=== PATIENT | male | born 1985 | race Caucasian/White ===

== ENCOUNTER 2021-06-21 01:00 | Emergency (ER) | payer SELFPAY ==
[2021-06-21 01:11] VITALS: BP 123/64
[2021-06-21] MEDS ORDERED: KETOROLAC 10 MG TAB PO ONE (07:45)
[2021-06-21] MEDS ORDERED: DOXYCYCLINE 100 MG CAP PO ONE (07:45)
--- NOTE | 2021-06-21 07:47 | Emergency Department Report ---
ED Male HPI - General Chief complaint: Skin/Abscess/Foreign Body Stated complaint: ABCESS ON INNER LEG Time Seen by Provider: 06/21/21 07:17 Source: patient Mode of arrival: Ambulatory Limitations: No Limitations - History of Present Illness Initial comments: 36-year-old black male with no past medical history presents to the emergency department for evaluation of left testicular abscess that he noticed 4 days ago. He states that area has been painful and draining purulent fluid. He denies fever, abdominal pain, nausea, vomiting, and diarrhea. He states that he had an abscess similar to this 1 in the past on his abdominal area. He denies dysuria and penile discharge. MD Complaint: testicle pain, testicle swelling -: Gradual, days(s) (4) Location: left testicle Radiation: none Severity: moderate Severity scale (0 -10): 7 Quality: aching Consistency: intermittent Worsens with: other (Walking) swelling. denies: discharge, mass, rash, urinary retention, blood in urine, dysuria, fever, nausea/vomiting, incontinence - Related Data Sexually active: Yes Previous Rx's Medication Instructions Recorded Last Taken Type DOXYCYCLINE Hyclate [Vibramycin] 100 mg PO Q12HR 7 Days #14 capsule 06/21/21 Unknown Rx Ibuprofen [Motrin 600 MG tab] 600 mg PO Q8H PRN #30 tablet 06/21/21 Unknown Rx Allergies Allergy/AdvReac Type Severity Reaction Status Date / Time No Known Allergies Allergy Unverified 06/21/21 01:08 ED Review of Systems ROS: Stated complaint: ABCESS ON INNER LEG Other details as noted in HPI Comment: All other systems reviewed and negative Constitutional: denies: chills, fever ENT: denies: congestion Respiratory: denies: shortness of breath Cardiovascular: chest pain, palpitations Gastrointestinal: denies: abdominal pain, nausea, vomiting, diarrhea, hematemesis, melena, hematochezia Genitourinary: testicular pain (Left lower). denies: urgency, dysuria, frequency, hematuria, discharge, testicular mass Musculoskeletal: denies: back pain, joint swelling Skin: denies: rash, lesions Neurological: denies: headache, weakness ED Past Medical Hx - Past Medical History Previous Medical History?: No - Surgical History Past Surgical History?: No - Medications Home Medications: Home Medications Medication Instructions Recorded Confirmed Last Taken Type DOXYCYCLINE Hyclate [Vibramycin] 100 mg PO Q12HR 7 Days #14 capsule 06/21/21 Unknown Rx Ibuprofen [Motrin 600 MG tab] 600 mg PO Q8H PRN #30 tablet 06/21/21 Unknown Rx ED Physical Exam - General Limitations: No Limitations General appearance: alert, in no apparent distress - Head Head exam: Present: atraumatic, normocephalic - Eye Eye exam: Present: normal appearance. Absent: conjunctival injection - Neck Neck exam: Present: normal inspection - Respiratory Respiratory exam: Absent: respiratory distress - Cardiovascular Cardiovascular Exam: Present: regular rate - GI/Abdominal GI/Abdominal exam: Present: soft. Absent: distended, tenderness, guarding, rebound, rigid - exam: Present: testicular tenderness (Left side on), circumcision. Absent: urethral discharge External exam: Present: erythema (Left side only), swelling (Left side only), other (Noted to have abscessed area to the left testicle with purulent drainage noted. Area tender to touch). Absent: normal external exam, lesions, lacerations, ecchymosis, bleeding - Extremities Exam Extremities exam: Present: normal inspection - Back Exam Back exam: Present: normal inspection. Absent: CVA tenderness (R), CVA tenderness (L) - Neurological Exam Neurological exam: Present: alert, oriented X3 - Psychiatric Psychiatric exam: Present: normal affect, normal mood - Skin Skin exam: Present: warm, dry, intact, normal color ED Course Vital Signs 06/21/21 01:08 Temperature 97.7 F Pulse Rate 71 Respiratory 16 Rate Blood Pressure 123/64 [Right] O2 Sat by Pulse 99 Oximetry ED Medical Decision Making - Medical Decision Making 36-year-old black male with no past medical history presents to the emergency department for evaluation of left testicular abscess that he noticed 4 days ago. He states that area has been painful and draining purulent fluid. He denies fever, abdominal pain, nausea, vomiting, and diarrhea. He states that he had an abscess similar to this 1 in the past on his abdominal area. He denies dysuria and penile discharge. Tenderness, erythema, swelling, and purulent drainage noted to the left testicular area consistent with abscess. Patient denies fever, abdominal pain, and vomiting. He will be treated with 7-day course of doxycycline along with ibuprofen for the irritation and swelling. He is advised to take medication as prescribed and follow-up with primary care provider if no improvement or worsening symptoms. He verbalized understanding of and agreement with plan of care. Critical care attestation.: If time is entered above; I have spent that time in minutes in the direct care of this critically ill patient, excluding procedure time. ED Disposition Clinical Impression: Testicular abscess Disposition: 01 HOME / SELF CARE / HOMELESS Is pt being admited?: No Does the pt Need Aspirin: No Condition: Stable Instructions: Skin Abscess, [id number], Testicular Self-Exam, [id number] Additional Instructions: Take medications as prescribed. Follow-up with primary care provider or urology if no improvement or worsening symptoms. Return to the emergency department as needed. Prescriptions: Ibuprofen [Motrin 600 MG tab] 600 mg PO Q8H PRN #30 tablet PRN Reason: Pain DOXYCYCLINE Hyclate [Vibramycin] 100 mg PO Q12HR 7 Days #14 capsule Referrals: ARA TARANGO MD [Referring] - 3-5 Days PRIYANK BUENROSTRO MD [Staff Physician] - 3-5 Days Forms: Work/School Release Form(ED) Time of Disposition: 07:47
== END 2021-06-21 09:00 | disposition home or self-care (01) ==
LOC: ED 01:00
DX: N45.4 Abscess of epididymis or testis (principal)
CPT/HCPCS: 99282